=== PATIENT | female | born 1945 | race Caucasian/White ===

== ENCOUNTER → 2018-03-17 | Outpatient (CLI) | payer OTHER ==
[~2018-03-17] MED LIST: ACCUPRIL40 MG PO; ADULT LOW DOSE81 MG PO; CENTRUM ULTRA1 EACH PO; CINNAMON; FELODIPINE ER5 MG PO; IBUPROFEN 200200 M1 PO; PRILOSEC 20 MG20 MG PO; SIMVASTATIN20 MG PO; TRIAMTERENE-HC1 EAC1 PO
== END ==
LOC: M.RAD 12:41
DX: M41.86 Other forms of scoliosis, lumbar region (principal); R07.9 Chest pain, unspecified; W19.XXXA Unspecified fall, initial encounter; Y93.89 Activity, other specified; Y92.89 Other specified places as the place of occurrence of the external cause; Y99.8 Other external cause status

== ENCOUNTER → 2018-09-12 | Outpatient (CLI) | payer OTHER | LOC: M.RAD 09-04 11:00 | DX: Z12.31 Encounter for screening mammogram for malignant neoplasm of breast (principal) ==

== ENCOUNTER → 2019-05-26 | Outpatient (CLI) | payer OTHER | LOC: M.RAD 12:10 | DX: M47.817 Spondylosis without myelopathy or radiculopathy, lumbosacral region (principal) ==

== ENCOUNTER → 2019-09-07 | Outpatient (CLI) | payer OTHER | LOC: M.RAD 10:56 | DX: Z12.31 Encounter for screening mammogram for malignant neoplasm of breast (principal) ==

== ENCOUNTER → 2020-09-08 | Outpatient (CLI) | payer OTHER | LOC: M.RAD 11:00 | PROVIDERS: ATTEND Internal Medicine | DX: Z12.31 Encounter for screening mammogram for malignant neoplasm of breast (principal); N64.89 Other specified disorders of breast ==

== ENCOUNTER → 2021-02-28 | Outpatient (CLI) | payer OTHER | LOC: M.RAD 10:34 | PROVIDERS: ATTEND Registered Nurse Diabetes Educator | DX: Z78.0 Asymptomatic menopausal state (principal) ==

== ENCOUNTER → 2021-09-06 | Outpatient (CLI) | payer OTHER | LOC: M.RAD 10:47 | PROVIDERS: ATTEND Registered Nurse Diabetes Educator | DX: Z12.31 Encounter for screening mammogram for malignant neoplasm of breast (principal) ==